=== PATIENT | female | born 1955 | race Caucasian/White ===

== ENCOUNTER 2024-10-24 18:10 | Inpatient (IN) | payer MEDICARE ==
[~2024-10-24] VITALS: Ht 157.5 cm; Wt 81.2 kg
[2024-10-24 18:10] VITALS: BP 124/78; PULSE 88; RESP 16; TEMP 36.7; O2SAT 98
[~2024-10-24 18:10] MED LIST: AMLO-905 PO; LISI-186 PO
[2024-10-24] MEDS ORDERED: BISACODYL 5MG TABLET PO PRN (19:15)
[2024-10-24] MEDS ORDERED: DEXTROSE 50% WATER 50ML SYRINGE IV PRN (19:15)
[2024-10-24] MEDS ORDERED: OXYCODONE HCL/ACETAMINOPHEN 5/325MG TABLET PO PRN ×2 (19:15)
[2024-10-24] MEDS ORDERED: MAGNESIUM/ALUMINUM HYDROXIDE/SIMETHICONE 30ML UDC PO PRN (19:15)
[2024-10-24] MEDS ORDERED: RACEPINEPHRINE 2.25% 0.5ML NEB VIAL HHN PRN (19:15)
[2024-10-24] MEDS ORDERED: ONDANSETRON HCL 4MG TABLET PO PRN (19:15)
[2024-10-24] MEDS ORDERED: NALOXONE HCL 0.4MG/ML VIAL IV PRN (19:45)
[2024-10-24 20:00] VITALS: BP_SYST 110; BP_SYST 120; BP_DIAS 68; BP_DIAS 70; PULSE 68; RESP 18; TEMP 36.7; O2SAT 98
[2024-10-24] MEDS: BACITRACIN 14GM TUBE TOP SCH (21:00)
[2024-10-24] MEDS: METOPROLOL TARTRATE 25MG TABLET PO SCH (21:00)
[2024-10-24] MEDS: DOCUSATE SODIUM SUGAR FREE 100MG/10ML UDC NG SCH (21:00)
[2024-10-24] MEDS: ATORVASTATIN CALCIUM 40MG TABLET PO SCH (21:48)
[2024-10-24] MEDS: VANCOMYCIN 750MG PREMIX 150 ML IV SCH (21:48)
[2024-10-25] MEDS: ACETAMINOPHEN 650MG/20.3ML UDC PO PRN (00:07)
[2024-10-25 07:11] LABS: HEMATOCRIT. 31.6 % (36.0-48.0); HEMOGLOBIN. 10.5 g/dL (12.0-16.0); MEAN PLATELET VOLUME 7.9 fl (7.4-10.4); PLATELET 360 x1000/uL (130-400); RED BLOOD CELL COUNT 3.35 mill/uL (4.2-5.4); RED CELL DISTRIBUTION WIDTH 14.3 % (11.6-14.6)
[2024-10-25 07:26] LABS: CREATININE 0.7 mg/dL (0.6-1.0)
[2024-10-25 07:27] LABS: UREA NITROGEN BLOOD 15 mg/dL (9-23)
[2024-10-25 07:28] LABS: ASPARTATE AMINOTRANSFERASE 18 IU/L (<34)
[2024-10-25 07:29] LABS: BILIRUBIN TOTAL 0.7 mg/dL (0.1-1.0); PROTEIN TOTAL 5.3 g/dL (6.0-8.3)
[2024-10-25 08:00] VITALS: BP 118/62; PULSE 70; RESP 16; TEMP 36.4; O2SAT 99
[2024-10-25] MEDS: ASPIRIN 81MG TABLET PO SCH (08:33)
[2024-10-25] MEDS: PANTOPRAZOLE 40MG DR TABLET PO SCH (08:33)
[2024-10-25] MEDS: CLOPIDOGREL 75MG TABLET PO SCH (08:33)
[2024-10-25] MEDS: MULTIVITAMINS,THER W-MINERALS TABLET PO SCH (11:08)
[2024-10-25] MEDS: POTASSIUM CHLORIDE 20MEQ TABLET SR PO SCH (11:08)
[2024-10-25] MEDS: CALCIUM CARBONATE 500MG TABLET CHEW PO SCH (11:09)
[2024-10-25] MEDS: FERROUS SULFATE 325MG TABLET PO SCH (11:09)
[2024-10-25 17:27] LABS: LYMPHOCYTES % MANUAL 12.0 % (20.0-60.0); MONOCYTES % MANUAL 13.0 % (2.0-8.0); NEUTROPHILS % MANUAL 75.0 % (45.0-75.0); PLATELET ESTIMATE NORMAL
[2024-10-25 17:37] LABS: CLARITY URINE CLEAR (CLEAR); COLOR URINE DARK YELLOW (YELLOW); GLUCOSE URINE NEGATIVE (NEGATIVE); KETONES URINE NEGATIVE (NEGATIVE); LEUKOCYTE ESTERASE URINE NEGATIVE (NEGATIVE); NITRITE URINE NEGATIVE (NEGATIVE); OCCULT BLOOD URINE NEGATIVE (NEGATIVE); PH URINE 7.0 (4.5-8.0); PROTEIN URINE NEGATIVE (NEGATIVE); SPECIFIC GRAVITY URINE 1.019 (1.005-1.030); UROBILINOGEN URINE 1.0 E.U./dL (0.2-1.0)
[2024-10-25 20:00] VITALS: BP 142/88; PULSE 79; TEMP 36.6; O2SAT 98
[2024-10-26 07:30] LABS: CREATININE 0.8 mg/dL (0.6-1.0); UREA NITROGEN BLOOD 19 mg/dL (9-23)
[2024-10-26 07:32] LABS: ASPARTATE AMINOTRANSFERASE 18 IU/L (<34); PROTEIN TOTAL 5.7 g/dL (6.0-8.3)
[2024-10-26 07:33] LABS: BILIRUBIN TOTAL 0.7 mg/dL (0.1-1.0)
[2024-10-26 07:35] LABS: FOLIC ACID (FOLATE) SERUM 14.79 ng/mL (>5.38); VITAMIN B12 SERUM 387 pg/mL (211-911)
[2024-10-26 07:57] LABS: BASOPHILS % 0.8 % (0.0-2.0); EOSINOPHILS % 1.2 % (0.0-5.0); HEMATOCRIT. 31.3 % (36.0-48.0); HEMOGLOBIN. 10.8 g/dL (12.0-16.0); LYMPHOCYTES % 19.9 % (20.0-50.0); MEAN PLATELET VOLUME 7.7 fl (7.4-10.4); MONOCYTES % 6.8 % (2.0-8.0); NEUTROPHILS % 71.3 % (40.0-76.0); PLATELET 417 x1000/uL (130-400); RED BLOOD CELL COUNT 3.36 mill/uL (4.2-5.4); RED CELL DISTRIBUTION WIDTH 14.2 % (11.6-14.6)
[2024-10-26 08:00] VITALS: BP 108/63; PULSE 81; RESP 20; TEMP 36.6; O2SAT 100
[2024-10-26] MEDS: POTASSIUM CHLORIDE 10MEQ TABLET SR PO SCH (09:09)
[2024-10-26 20:00] VITALS: BP 105/62; PULSE 96; RESP 20; TEMP 36.7; O2SAT 100
[2024-10-27 08:00] VITALS: BP 115/64; PULSE 83; RESP 16; TEMP 36.3; O2SAT 98
[2024-10-27] MEDS: CHOLECALCIFEROL (D3) 1000 UNIT TABLET PO SCH (09:18)
[2024-10-27 20:00] VITALS: BP 116/65; PULSE 88; RESP 20; TEMP 36.3; O2SAT 100
[2024-10-28 08:00] VITALS: BP 111/73; PULSE 81; RESP 20; TEMP 36.4; O2SAT 96
[2024-10-28 21:00] VITALS: BP 111/46; PULSE 84; RESP 19; TEMP 37.6; O2SAT 97
[2024-10-28] MEDS: FUROSEMIDE 20MG TABLET PO SCH (21:30)
[2024-10-29 08:00] VITALS: BP 101/58; PULSE 76; RESP 18; TEMP 36.7; O2SAT 98
[2024-10-29] MEDS: CYANOCOBALAMIN 1000MCG/ML VIAL IM SCH (08:58)
[2024-10-29] MEDS: ERGOCALCIFEROL 50000UNITS CAPSULE PO SCH (17:21)
[2024-10-29 20:00] VITALS: BP 99/56; PULSE 83; RESP 18; TEMP 37.2; O2SAT 99
[2024-10-30] MEDS: ALENDRONATE SODIUM 35MG TABLET PO SCH (07:06)
[2024-10-30 08:00] VITALS: BP 115/70; PULSE 90; RESP 19; TEMP 36.6; O2SAT 99
[2024-10-30 20:00] VITALS: BP 109/51; PULSE 80; RESP 18; TEMP 36.3; O2SAT 98
[2024-10-31] VITALS: BP 101/50; PULSE 78; RESP 18; TEMP 36.4; O2SAT 97
[2024-10-31 08:00] VITALS: BP 120/72; PULSE 79; RESP 20; TEMP 36.4; O2SAT 100
[2024-10-31 20:00] VITALS: BP 133/70; PULSE 82; RESP 20; TEMP 36.8; O2SAT 98
[2024-11-01 08:00] VITALS: BP 122/73; PULSE 75; RESP 20; TEMP 36.6; O2SAT 97
[2024-11-01] MEDS ORDERED: ALEN70TA84 MT (10:00)
[2024-11-01] MEDS ORDERED: LIP40 PO (10:00)
[2024-11-01] MEDS ORDERED: CLOP-31 PO (10:00)
[2024-11-01] MEDS ORDERED: CALC500T35 PO (10:00)
[2024-11-01] MEDS ORDERED: ASPI-1160 PO (10:00)
[2024-11-01] MEDS ORDERED: METO25TA6 PO (10:00)
[2024-11-01] MEDS ORDERED: CHOL-36 PO (10:00)
[2024-11-01 11:36] VITALS: BP 122/73; PULSE 75; TEMP 97.8; O2SAT 97
== END 2024-11-01 12:45 | disposition home health service (06) | DRG 280 ==
PROVIDERS: ADMIT Physical Medicine & Rehabilitation Spinal Cord Injury Medicine; ATTEND Internal Medicine
DX: I21.4 Non-ST elevation (NSTEMI) myocardial infarction (principal); J96.00 Acute respiratory failure, unspecified whether with hypoxia or hypercapnia; N39.0 Urinary tract infection, site not specified; R13.10 Dysphagia, unspecified; E66.811 Obesity, class 1; I10 Essential (primary) hypertension; D64.9 Anemia, unspecified; I95.1 Orthostatic hypotension; Z68.32 Body mass index [BMI] 32.0-32.9, adult; F32.A Depression, unspecified; I25.10 Atherosclerotic heart disease of native coronary artery without angina pectoris; J98.4 Other disorders of lung; M81.0 Age-related osteoporosis without current pathological fracture; E55.9 Vitamin D deficiency, unspecified; F41.9 Anxiety disorder, unspecified; E78.00 Pure hypercholesterolemia, unspecified; R26.9 Unspecified abnormalities of gait and mobility; Z79.82 Long term (current) use of aspirin; Z79.899 Other long term (current) drug therapy; I25.2 Old myocardial infarction; Z88.0 Allergy status to penicillin; Z91.81 History of falling; Z95.1 Presence of aortocoronary bypass graft; Z82.49 Family history of ischemic heart disease and other diseases of the circulatory system; Z87.442 Personal history of urinary calculi
CPT/HCPCS: 36415; 71045; 80053; 81003; 82306; 82607; 82728; 82746; 83036; 83540; 83550; 84134; 84443; 85025; 92610; 97110; 97112; 97116; 97162; 97166; 97530; 97535; A4606; J3373; J3420